=== PATIENT | female | born 1965 | race Caucasian/White ===

== ENCOUNTER → 2018-12-02 | Outpatient (CLI) | payer OTHER ==
[~2018-12-02] MED LIST: AMITRIPTYLINE H10 M1; AMITRIPTYLINE HCL PO; FISH OIL 1,0001 EAC5 PO; FLONASE16 GM NASAL; HYDROCODON-ACE1 EAC7; INDERAL60 MG PO; LORTAB 5 MG/5001 TA1 PO; MAXALT MLT5 MG; MAXALT PO; MULTIVITAMINS PO; PATADAY2.5 ML OPHTHALMIC; PROPRANOLOL 1010 M1 PO; SKELAXIN 800 M800 M1 PO; VITAMIN B-12500 MCG PO
== END ==
LOC: RAD 15:49
DX: M54.5 Low back pain (principal)